=== PATIENT | male | born 1940 | race Caucasian/White ===

== ENCOUNTER 2022-08-11 23:25 | Observation (INO) | payer MEDICARE ==
[~2022-08-11] VITALS: Wt 62.1 kg
[2022-08-12] MEDS ORDERED: ELIQUIS5 M2 PO (01:55)
[2022-08-12] MEDS ORDERED: Carvedilol12.5 MG PO (01:55)
[2022-08-12] MEDS ORDERED: PANT40 PO (01:56)
[2022-08-12] MEDS ORDERED: FLECAINIDE ACE150 M1 PO (01:56)
[2022-08-12] MEDS ORDERED: FURO40 PO (01:56)
[2022-08-12] MEDS ORDERED: Prinivil5 MG PO (01:56)
[2022-08-12] MEDS ORDERED: POTCHL20ER PO (01:57)
[2022-08-12 02:09] VITALS: BP 125/56
[2022-08-12 04:26] LABS: BASOPHILS ABSOLUTE AUTO 0.03 K/mm3 (0.00-0.23); BASOPHILS PERCENT AUTO 0 % (0-2); EOSINOPHILS PERCENT AUTO 0 % (0-6); Hematocrit 33.8 % (37.0-53.0); Hemoglobin 11.1 g/dL (13.5-17.5); IMMATURE GRAN ABSOLUTE AUTO 0.07 K/mm3 (0.00-0.10); IMMATURE GRAN PERCENT AUTO 1 % (0-1); LYMPHOCYTES ABSOLUTE AUTO 0.54 K/mm3 (0.84-5.20); LYMPHOCYTES PERCENT AUTO 5 % (21-46); MONOCYTES ABSOLUTE AUTO 0.47 K/mm3 (0.16-1.47); MONOCYTES PERCENT AUTO 4 % (4-13); Mean Corpuscular HGB 32.2 pg (26.0-34.0); Mean Corpuscular HGB Conc 32.8 g/dL (31.5-36.5); Mean Corpuscular Volume 98 fL (80-100); Mean Platelet Volume 10.3 fL (9.1-12.4); NEUTROPHILS ABSOLUTE AUTO 10.89 K/mm3 (1.96-9.15); NEUTROPHILS PERCENT AUTO 91 % (41-73); Platelet Count 131 K/mm3 (150-400); RDW Coefficient Variation 14.2 % (11.7-14.2); RDW Standard Deviation 50.5 fL (35.1-46.3); Red Blood Cell Count 3.45 M/mm3 (4.30-5.90)
--- NOTE | 2022-08-12 04:27 | NUR ---
SHIFT SUMMARY PT ARRIVED FROM [place] THIS MORNING A DIRECT ADMIT. DR. HILTON CAME UP AND EVALUATED HIM. ORDERS WERE PUT IN AND MEDICATIONS RECONCILED. PT HAS HAD NO COMPLAINTS SINCE HIS ARRIVAL. WILL REPORT TO ONCOMING NURSE.
[2022-08-12 05:02] LABS: Albumin, Blood 1.9 g/dL (3.4-5.0); Anion Gap 3 mmol/L (6-16); Blood Urea Nitrogen 37 mg/dL (8-24); Bun/Creatinine Ratio 33.3 (12.0-20.0); CO2, Blood 44 mmol/L (21-32); Calcium, Blood 7.7 mg/dL (8.5-10.1); Chloride, Blood 96 mmol/L (98-108); Creatinine, Blood 1.11 mg/dL (0.60-1.20); Glomerular Filtration Rate 66 (60-); Glucose, Blood 105 mg/dL (70-99); Phosphorus, Blood 3.5 mg/dL (2.5-4.9); Potassium, Blood 2.4 mmol/L (3.5-5.5); Sodium, Blood 143 mmol/L (136-145)
--- NOTE | 2022-08-12 05:08 | NUR ---
CRITICAL LAB VALUE NOTIFIED BY LAB OF CRITICAL LAB VALUE FOR POTASSIUM AT 2.4 AND LACTIC ACID AT 2.7. BOTH TRENDING IN THE RIGHT DIRECTION PER HIS LABS IN [place]. PROVIDER WAS NOTIFIED AND ORDERS OBTAINED TO HELP REPLACE THE POTASSIUM.
[2022-08-12 07:23] VITALS: BP 129/66
[2022-08-12 11:21] LABS: Bun/Creatinine Ratio 36.4 (12.0-20.0); Calcium, Blood 7.7 mg/dL (8.5-10.1); Creatinine, Blood 1.1 mg/dL (0.60-1.20); Potassium, Blood 2.9 mmol/L (3.5-5.5)
[2022-08-12 14:07] LABS: Calcium, Blood 8.2 mg/dL (8.5-10.1); Creatinine, Blood 1.12 mg/dL (0.60-1.20); Potassium, Blood 2.8 mmol/L (3.5-5.5)
--- NOTE | 2022-08-12 14:47 | NUR ---
SHIFT SUMMARY PT AWAKE DURING SHIFT REPORT THIS AM. PT UP TO BTHRM WITH 1P SBA USING FWW. PER REPORT, PT USES CANE AT BASELINE. PT LOOSING IV ACCESS WHEN UP TO BTHRM. NEW IV PLACED TO RH. RESIDENTS AND HOSPITALIST IN TO SEE PT AND DISCUSS PLAN OF CARE. PT TAKEN DOWN FOR CT AND THEN HAD ECHO DONE IN WHEN RETURNING. PT'S TO LATER THIS AM UNTIL AFTER LUNCH. DR ALCANTARA NOTIFIED TO COME TO AND UPDATE ON PLAN OF CARE. ADDITIONAL CT ORDERED THIS AFTERNOON. IMAGING CALLED TO REQUEST WAITING UNTIL AM PT ALREADY HAD CONTRAST TODAY. DR ALCANTARA NOTIFIED AND IMAGING CHANGED TIME FOR AM. PHARMACY CALLED TO REPORT PT'S WEIGHT GETTING CLOSE TO ELIQU[facility] DOSING CHANGES. DR ALCANTARA ALSO UPDATED ON PHARMACY INFO. DAILY WEIGHT'S ORDERED, STARTING IN AM. PT UP TO SHOWER WHEN WENT HOME. LINEN CHANGE DONE WELL. RESTING QUIETLY AT THIS TIME. DENIES FURTHER NEEDS. CALL LT IN REACH.
[2022-08-12 15:56] VITALS: BP 115/55
[2022-08-12 19:11] VITALS: BP 116/52
[2022-08-12 19:32] LABS: Bun/Creatinine Ratio 33.9 (12.0-20.0); Calcium, Blood 8.1 mg/dL (8.5-10.1); Creatinine, Blood 1.12 mg/dL (0.60-1.20); Potassium, Blood 3.1 mmol/L (3.5-5.5)
[2022-08-13 05:26] LABS: BASOPHILS ABSOLUTE AUTO 0.03 K/mm3 (0.00-0.23); BASOPHILS PERCENT AUTO 0 % (0-2); EOSINOPHILS PERCENT AUTO 0 % (0-6); Hematocrit 33.5 % (37.0-53.0); Hemoglobin 10.8 g/dL (13.5-17.5); IMMATURE GRAN ABSOLUTE AUTO 0.08 K/mm3 (0.00-0.10); IMMATURE GRAN PERCENT AUTO 1 % (0-1); LYMPHOCYTES ABSOLUTE AUTO 0.47 K/mm3 (0.84-5.20); LYMPHOCYTES PERCENT AUTO 4 % (21-46); MONOCYTES ABSOLUTE AUTO 0.38 K/mm3 (0.16-1.47); MONOCYTES PERCENT AUTO 4 % (4-13); Mean Corpuscular HGB 31.6 pg (26.0-34.0); Mean Corpuscular HGB Conc 32.2 g/dL (31.5-36.5); Mean Corpuscular Volume 98 fL (80-100); Mean Platelet Volume 10.5 fL (9.1-12.4); NEUTROPHILS ABSOLUTE AUTO 9.99 K/mm3 (1.96-9.15); NEUTROPHILS PERCENT AUTO 91 % (41-73); NRBC ABSOLUTE 0.02 K/mm3 (0.00-0.02); NRBC Auto 0.2 /100 WBC (0.0-0.2); Platelet Count 129 K/mm3 (150-400); RDW Coefficient Variation 14.3 % (11.7-14.2); RDW Standard Deviation 51.4 fL (35.1-46.3); Red Blood Cell Count 3.42 M/mm3 (4.30-5.90); White Blood Cell Count 10.95 K/mm3 (4.00-11.30)
[2022-08-13 05:38] LABS: International Normalized Ratio 1.26; Prothrombin Time Results 13.1 Sec (9.7-11.5)
[2022-08-13 05:40] LABS: Albumin, Blood 1.9 g/dL (3.4-5.0); Albumin/Globulin Ratio 0.6 (0.8-1.8); Bilirubin, Total 3.4 mg/dL (0.1-1.0); Bun/Creatinine Ratio 34.8 (12.0-20.0); C-REACTIVE PROTEIN, EXT RANGE 3.93 mg/dL (0.000-0.300); Calcium, Blood 7.9 mg/dL (8.5-10.1); Creatinine, Blood 1.12 mg/dL (0.60-1.20); Globulin, Blood 3.1 g/dL (2.2-4.0); Potassium, Blood 3.1 mmol/L (3.5-5.5)
[2022-08-13 06:15] LABS: Alpha Feto Protein, Tumor Mkr 1.1 ng/mL (0.0-8.0); Cancer Antigen 19-9 3271.8 U/mL (2.0-37.0); Carcinoembryonic Antigen 81.6 ng/mL (0.0-3.0)
[2022-08-13 07:35] VITALS: BP 141/63
--- NOTE | 2022-08-13 13:36 | NUR ---
Met with pt today as requested by bedside RN. The patient has been declining at home for approximately 2 months according to his Evelyn. He was admitted with acute kidney injury and heart failure, but once a CT was performed, the pt and his were told it was most likely a metastatic cancer. That was yesterday. Today, the pt is requiring increased oxygen, breath sounds are moist, and pt appears to be actively dying. Pt states he knows he's "dying", and asked me to call his . I did, but was unable to reach her. In the meantime, Dr. Mcbride gave vo for comfort care.
--- NOTE | 2022-08-13 15:53 | NUR ---
SHIFT SUMMARY PT RESTING QUIETLY AT START OF SHIFT, SOON UP TO BTHRM WITH 1P SBA USING FWW. PT SITTING UP TO EOB FOR BREAKFAST. RESIDENT DOCTORS IN TO SEE PT AND DISCUSS PLAN OF CARE. PT NEEDING ANOTHER LIVER CT PRIOR TO LIVER BIOPSY, PER IMAGING. IMAGING REQUESTING BIOPSY BE DONE OUTPT. DR SMITH AND DR EARL UPDATED. NEW ORDERS PLACED. PT LATER C/O PAIN AND SCREAMING OUT; MEDICATED PER EMAR AND LATER CALMED. PT RESTING QUIETLY FOR A WHILE AND THEN STATING THAT HE WANTED TO AND DID NOT WANT ANY FURTHER TX. PALLIATIVE CARE NOTIFIED AND CAME TO TO TALK WITH PT. PT REQUESTING TO BE DNR AND MADE COMFORT CARE. DR EARL AND DR SMITH TO AGAIN TO TALK WITH PT AT LENGTH. NEW ORDERS PLACED. SEVERAL ATTEMPTS MADE TO CONTACT BEFORE BEING ABLE TO REACH HER. UPDATED ON PT'S REQUEST FOR COMFORT CARE, BY JASMINA WAGGONER AND DR SMITH. TO DRIVE OVER TO VISIT TODAY AND DISCUSS PLAN OF CARE AND POSSIBLE D/C TOMORROW. PT MEDICATED PER REQUEST AND EMAR. DENIED FURTHER NEEDS AT THIS TIME. CALL LT IN REACH.
--- NOTE | 2022-08-13 17:39 | NUR ---
Pt's and son at bedside. Pt continues to have what appears to be seizure like activity, becoming still, no visual breathing, eyes wide open without blinking for several seconds at a time. The bedside RN Emi witnessed the same earlier. Pt's says he has been doing this intermittently for the last few months. Pt doesn't seem to have any knowledge of them, and denies pain or other concern related. Palliative Care will remain involved.
[2022-08-13 20:12] VITALS: BP 102/53
--- NOTE | 2022-08-14 03:51 | NUR ---
SHIFT SUMMARY PT ON COMFORT CARE. HE HAD SOME ANXIETY AT THE START OF THE SHIFT AND WAS MEDICATED PER THE EMAR. HE USES A WALKER TO THE BATHROOM AND CAN BE UNSTEADY. FAMILY HAS BEEN AT THE BS AND PLAN IS FOR HIM TO GO HOME ON HOSPICE. HE HAS SLEPT THROUGHOUT THE NIGHT. CALL LIGHT IS WITHIN REACH, BED IN THE LOWEST POSITION. WILL REPORT TO ONCOMING NURSE.
--- NOTE | 2022-08-14 15:33 | NUR ---
COMFORT CARE SHIFT SUMMARY PATIENT IS ALERT AND ORIENTED X3 OFF AND ON. PATIENT HAS SLEPT MOST OF SHIFT. FAMILY HAS VISITED MOST OF SHIFT. PATIENT HAS HAD ANXIETY AND MEDICATED PER EMAR. PATIENT REPORTED PAIN AND MEDICATED PER EMAR. PATIENT HAS NOT HAD ANY SOB OR VOMITTING THIS SHIFT. BED IN LOCKED AND LOWEST POSITION. CALL LIGHT IN PLACE. WILL MONITOR UNTIL SHIFT CHANGE.
--- NOTE | 2022-08-15 05:42 | NUR ---
SHIFT SUMMARY 81 YR M ON COMFORT CARE. DNR. NO ACUTE CHANGES THIS SHIFT. PT HAS BECOME WEAK ENOUGH THAT IT IS VERY DIFFICULT FOR HIM TO STAND AND TRANSFER TO BEDSIDE COMMODE. HE IS NOW BEING ASSISTED TO SIT ON THE EDGE OF THE BED TO USE THE URINAL INSTEAD OF STANDING. HE CALLS OUT RANDOMLY FOR HELP RATHER THAN USING THE CALL LIGHT. HIS COUGH IS WET AND GURGLY SO PRN ATROPINE WAS GIVEN TWICE PER EMAR. PT HAS SLEPT FOR MOST OF THIS SHIFT
--- NOTE | 2022-08-15 13:21 | NUR ---
PT WAS ALERT AND RESPONSIVE TO VOICE THIS MORNING. ABLE TO ANSWER QUESTIONS REGARDING HIS COMFORT NEEDS. TREATED PAIN AND ANXIETY. LEES CATHETER FOR COMFORT.
--- NOTE | 2022-08-15 15:07 | NUR ---
PT LOOKS TO BE RESTING COMFORTABLY IN BED. O2 ON FOR COMFORT.
--- NOTE | 2022-08-15 18:12 | NUR ---
SHIFT SUMMARY PT SEEMS TO BE RESTING COMFORTABLY ONCE LEES CATHETER INSERTION. PT UNABLE TO CLEAR SECRETIONS. LABORED BREATHING. 3L NC FOR COMFORT. PT DRANK SOME WATER THIS MORNING BUT HAS NOT EATEN THIS SHIFT
--- NOTE | 2022-08-15 19:34 | NUR ---
pt seen this morning and throughout the day. pt having more labored breathing and deep secretions. Review of medications with nursing. assited in placing coustark for comfort. pt now resting with slight increase in prn meds breathing more comfortable. Review of pt with . 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 advised he is progressing and may be eminent soon. The hospe is that familywill get here tomorrow to see him. Therputic time with she has her own health issues. She had to leave to help her family. advised will chaeck on him frquently.
--- NOTE | 2022-08-16 06:07 | NUR ---
NO SIGNIFICANT CHANGES. ATROPINE AND ROXANOL GIVEN INTERMITTENTLY. WET BREATH SOUNDS CONTINUE. REGULAR REPOSITION ASSISTANCE PROVIDED. LEES PLACED FOR COMFORT, DARK, LIMITED OUTPUT. APPEARS COMFORTABLE.
--- NOTE | 2022-08-16 17:01 | NUR ---
PT'S SYMPTOMS WELL CONTROLLED WITH COMFORT CARE MEDS. PT HAS BEEN NONRESPONSIVE THIS SHIFT. NO SIGNS OF MOTTLING. PT IS WARM TO THE TOUCH.
--- NOTE | 2022-08-16 17:35 | NUR ---
Home: [facility]. The chose [facility] today after giving her a list of mortuaries in [facility]. She states she is doing ok, still very "weepy" at times, but thankful for the care. Pt appears comfortable, no changes needed care plan at this time.
--- NOTE | 2022-08-17 03:14 | NUR ---
PT LAYING IN BED DURING BEDSIDE REPORT, AND SON AT BEDSIDE- PT RESPIRATIONS INCREASED - PT APPEARED TO HAVE AIR HUNGER - DAYSCHRISSY REY MEDICATED BEFORE END OF SHIFT- 1944 REPORTED PT APPEARED TO STRUGGLE WITH BREATHING AND REQUESTED MEDICATION- GAVE ATIVAN IV PER PRN ORDER- PT TOLERATED WELL- ORAL CARE AND PT REPOSITIONED Q2H- LEES CATH IN PLACE DRAINING DARRYN URINE WITH SMALL AMOUNT OF OUTPUT- CATH CARE DONE, 34 PT BREATHING PATTERN SLOWED WITH SHALLOW BREATHS- STAFF AT BEDSIDE WHILE THIS RN ATTEMPTED TO CALL [facility]- NO ANSWER- PT AT 0040 WITH 2ND NURSE VERIFICATION BY CHRISTIAN REEDER RN- 0053 CALL AND NOTIFIED HOSPITIALIST DR. TAPIA OF TIME OF - 99 2ND CALL TO WITH NO ANSWER- LEFT 2ND VOICEMAIL TO RETURN CALL - ATTEMPTED TO CALL [facility]EP [facility] WHERE FAMILY IS STAY[facility]- NO ROOMS REGISTERED TO WIFES NAME- 0220 LEFT ANOTHER MESSAGE FOR TO CALL HOSPITAL 0230 PHONE CALL FROM AND NOTIFIED HER AND SHE WILL BE IN SOON - 0315 PERSONAL BELONGINS TAKEN BY - RING AND EARRING AND OTHER PERSONAL BELONGINGS COLLECTED FROM PT BY -[id number] NOTIFED THIS RN THAT WE CAN RELEASE PT TO [facility]- POST MORTEM CARE DONE- NOTIFIED RUSTY REEDER CHARGE NURSE THAT PT OK TO GO TO MORTUARY
== END 2022-08-17 00:40 ==
LOC: MEDS 23:25
PROVIDERS: Family Medicine; Family Medicine Adult Medicine; Student in an Organized Health Care Education/Training Program; ADMIT Student in an Organized Health Care Education/Training Program
DX: N17.9 Acute kidney failure, unspecified (principal); C34.90 Malignant neoplasm of unspecified part of unspecified bronchus or lung; I48.0 Paroxysmal atrial fibrillation; I11.0 Hypertensive heart disease with heart failure; I50.9 Heart failure, unspecified; R91.8 Other nonspecific abnormal finding of lung field; E88.09 Other disorders of plasma-protein metabolism, not elsewhere classified; E83.51 Hypocalcemia; E87.6 Hypokalemia; E87.20 Acidosis, unspecified; D72.829 Elevated white blood cell count, unspecified; R11.2 Nausea with vomiting, unspecified; R74.01 Elevation of levels of liver transaminase levels; Z66 Do not resuscitate
CPT/HCPCS: 36415; 51702; 71260; 80048; 80053; 80069; 82105; 82330; 82378; 83605; 83735; 83880; 85025; 85610; 85730; 86140; 86301; 93306; 94760; 96361; 96365; 96366; 96367; 96375; 96376; A9270; G0378; J0612; J2060; J3480; J7040; J7050; J7120; Q9967